=== PATIENT | female | born 1980 | race Caucasian/White ===

== ENCOUNTER 2016-11-03 22:10 | Emergency (ER) | payer SELFPAY ==
[~2016-11-03 22:10] MED LIST: ALEVE220 MG PO; AMOXICILLIN 50500 MG PO; CEPHALEXIN500 M1 PO; IBUPROFEN200 M1 PO; NO HOME MEDICATIONS; NORCO 325 MG-51 TAB PO
[2016-11-04 11:08] VITALS: BP 115/74
== END 2016-11-04 11:06 | disposition home or self-care (01) ==
LOC: ED 22:10
DX: S00.83XA Contusion of other part of head, initial encounter (principal); F10.20 Alcohol dependence, uncomplicated; F17.229 Nicotine dependence, chewing tobacco, with unspecified nicotine-induced disorders; Y90.8 Blood alcohol level of 240 mg/100 ml or more
CPT/HCPCS: J1200; J2060; J3411; J7030

== ENCOUNTER 2016-11-25 17:03 | Observation (INO) | payer SELFPAY ==
--- NOTE | 2016-11-25 19:49 | NUR ---
PATIENT ADMITTED TO OBSERVATION STATUS. SHE WILL REMAIN IN ROOM 101. SHE CURRENTLY HAS SOFT RESTRAINTS IN PLACE TO BILAT WRIST AND ANKLE. DURING HER ED VISIT SHE WAS UNCOOPERATIVE AND VERBALLY ABUSIVE/THREATENING TO STAFFF/OFFICERS. SHE IS CALMING DOWN; BECOMING MORE WILLING TO ANSWER HEALTH RELATED QUESTIONS AND PARTICIPATE WITH CARE. PATIENT IS NO LONGER HAVING VERBAL OUTBURSTS OF RANDOM NOISES. SHE WILL STILL CURSE AT OFFICERS/STAFF INTERMITTENTLY, BUT WITH A MORE CALMER TONE. EXTREMITIES APPEAR RELAXED.
--- NOTE | 2016-11-25 20:00 | NUR ---
PATIENT HAS CALMED DOWN, IS TALKING WITH OFFICERS AT BEDSIDE, ONE OF THE OFFICERS ASKS IF THE RESTRAINTS COULD BE REMOVED FOR PATIENTS COMFORT HE WILL BE AT BEDSIDE TO MONITOR CLOSELY, RESTRAINTS REMOVED AT THIS TIME, PATIENT COOPERATIVE AT THIS TIME, WILL CONTINUE TO MONITOR
[2016-11-25 20:14] VITALS: BP 120/60
[2016-11-25 20:17] VITALS: BP 120/60
--- NOTE | 2016-11-25 21:25 | NUR ---
Pt is not keeping arm straight and IV continues to alarm due to occlusion of IV. Per Dr. Noguera, IV may be stopped temporarily until pt will keep arm straight for infusion. IV stopped at this time. Pt resting in bed with eyes closed and police chief deputy remains in room.
[2016-11-25 23:05] VITALS: BP 102/55
--- NOTE | 2016-11-26 01:00 | NUR ---
patient sleeping soundly, resp even/unlabored, iv fluids infusing per gravity into IV in patients left ac, police officer booking remains at bedside
--- NOTE | 2016-11-26 01:56 | NUR ---
patient awake, ambulates to the bathroom without difficulty, gait steady, is alert, oriented and cooperative, no longer slurring words, behavior is appropriate, is ready to talk with psych screener from [facility] notified of need for psych screen at this time
[2016-11-26 03:00] VITALS: BP 116/68
--- NOTE | 2016-11-26 03:27 | NUR ---
Reyna from [facility] calls, report given, zoom meeting intiated, Reyna talking with patient over the computer at this time
--- NOTE | 2016-11-26 03:53 | NUR ---
Zoom meeting completed, Reyna calls nurses station with report, patient is to be discharged to home, Reyna will be calling Sunday afternoon to check in on patient, patient has agreed to this plan
[2016-11-26 04:28] VITALS: BP 117/85
--- NOTE | 2016-11-26 04:28 | NUR ---
IVL REMOVED WITHOUT DIFFICULTY, NO ACTIVE BLEEDING NOTED FROM INSERTION SITE, D/C VITALS TAKEN, REVIEWED DISCHARGE INSTRUCTIONS WITH PATIENT, SHE VERBALIZES UNDERSTANDING OF ALL INSTRUCTIONS, POLICE AT BEDSIDE TO ESCORT PATIENT HOME, PATIENT AMBULATES OUT WITHOUT DIFFICULTY, GAIT STEADY, DISCHARGED FROM OBS STATUS AT THIS TIME WITHOUT INCIDENT
== END 2016-11-26 04:28 | disposition home or self-care (01) ==
LOC: ED 17:03 → MED/SURG 19:01 → ED 19:01 → MED/SURG 19:01
PROVIDERS: ADMIT Family Medicine
DX: F10.129 Alcohol abuse with intoxication, unspecified (principal); Y90.8 Blood alcohol level of 240 mg/100 ml or more; F32.9 Major depressive disorder, single episode, unspecified; R45.1 Restlessness and agitation; F17.210 Nicotine dependence, cigarettes, uncomplicated; R45.5 Hostility
CPT/HCPCS: G0378; J2060; J3411; J7030

== ENCOUNTER 2016-12-01 15:53 | Observation (INO) | payer SELFPAY ==
[2016-12-01 21:56] VITALS: BP 129/80
[2016-12-01 22:01] VITALS: BP 129/80
--- NOTE | 2016-12-01 22:25 | NUR ---
PT ADMITTED TO OBS FROM ER. ADMISSION HX AND ASSESSMENT COMPLETE. PT ORIENTED TO ROOM. PT IS A FALL RISK DUE TO ALCOHOL WITHDRAWAL. EDUCATED PT ABOUT BED ALARM AND THAT IT WILL BE SET WHEN SHE IS IN BED. PT VERBALIZED UNDERSTANDING. PT IS MORE STEADY ON HER FEET NOW THEN BEFORE SHE GOT ATIVAN IN THE ER. INSTRUCTED PT TO LET RN KNOW WHEN SHE STARTS TO GET DETOX SYMPTOMS AGAIN THEN I WOULD GIVE HER MORE. PT VERBALIZED UNDERSTANDING. PT HAS 20G IV IN LAC WITH BANANA BAG INFUSING AT 125ML/HR. PT NOTED TO HAVE LARGE BRUISE TO LEFT UPPER ARM. APPEARS DARK PURPLE IN COLOR. PT STATES SHE HAS SMALL VERIOUS BRUISES ALL OVER HER BODY. PT STATES SHE HAS A HEADACHE 3/10. WILL AS[address] DR FOR SOMETHING FOR IT. PT ALSO GIVEN A NICOTINE PATCH. PT DENIES ANY OTHER NEEDS OR CONCERNS AT THIS TIME. THIS TIME.
[2016-12-01 22:54] VITALS: BP 129/80
[2016-12-01 23:19] VITALS: BP 129/80
--- NOTE | 2016-12-02 00:06 | NUR ---
PT STATES SHE IS STARTING TO FEEL SHAKY AGAIN. ATIVAN 1MG IV GIVEN. REASSESSED HEADACHE AND PT STATES IT IS GONE. PT DENIES ANY OTHER NEEDS AT THIS TIME.
--- NOTE | 2016-12-02 02:10 | NUR ---
PT UP TO RESTROOM. PT STATED SHE WAS NAUSEATED, SWEATY, AND HAVING WEIRD DREAMS. STATES HER SHAKES ARE DOING GOOD AT THIS TIME. DID REQUEST SOMETHING FOR THE NAUSEA. ZOFRAN 4MG IV GIVEN. WILL CONT TO MONITOR CLOSELY.
[2016-12-02 03:00] VITALS: BP 127/88
[2016-12-02 06:25] VITALS: BP 116/73
--- NOTE | 2016-12-02 06:33 | NUR ---
END OF SHIFT NOTE: PT APPEARED TO HAVE SLEPT PRETTY WELL THROUGHOUT THE NIGHT. UP A COUPLE TIMES TO VOID. MEDICATED ONCE SINCE ADMISSION WITH ATIVAN AND ONCE WITH ZOFRAN. PT ASKED SEVERAL TIMES THROUGHOUT THE SHIFT HOW HER WITHDRAWL SYMPTOMS WERE DOING AFTER LAST ATIVAN GIVEN. PT STATED FINE AND THAT SHE DID NOT NEED ANYMORE MEDICATION AT THAT TIME TO HELP WITH SYMPTOMS. PT CURRENTLY RESTING QUIETLY WITH EYES CLOSED. NO DISTRESS SEEN. BED ALARM IN ON. IV BANANA BAG CONTINUES TO INFUSE AT 125ML/HR THROUGH LAC IV.
--- NOTE | 2016-12-02 07:15 | NUR ---
Report given to DAYANA Anderson.
--- NOTE | 2016-12-02 07:33 | NUR ---
Report received from Iraj Best RN and care assumed. Pt resting in bed, eyes closed, and no signs of distress or discomfort noted at this time. Call light in reach, bed alarm on.
--- NOTE | 2016-12-02 08:15 | NUR ---
Pt has friend in to visit.
--- NOTE | 2016-12-02 09:00 | NUR ---
Pt states that she has a headache and feels like she is having a hang over. Dr. Madden notified and order obtained. Pt states that she has a friend who will be watching her and making sure that [place] [facility] [place] Talked with pt about the importance of going as expected and pt states that she will follow through with the plan. Pt up in bathroom getting ready for discharge, denies dizziness, gait steady.
[2016-12-02 09:43] VITALS: BP 136/93
--- NOTE | 2016-12-02 10:00 | NUR ---
Contacted [facility] regarding pt's arrival later today. Per staff there, pt still has a room available this afternoon and no other paperwork aside from discharge paperwork is needed. Pt given printed directions to the facility with discharge paperwork. Reviewed discharge instructions with pt and pt verbalizes understanding of importance of going to facility as discussed. Pt states that she has a friend in town, [place], who will be watching out for her and making sure she is doing what she is supposed to be doing. Pt has no other questions or concerns at this time. Pt ambulates out of facility to POV, gait steady.
== END 2016-12-02 10:00 | disposition home or self-care (01) ==
LOC: ED 15:53 → MED/SURG 21:40
PROVIDERS: ADMIT Family Medicine
DX: F10.20 Alcohol dependence, uncomplicated (principal); Y90.0 Blood alcohol level of less than 20 mg/100 ml; G25.2 Other specified forms of tremor; N39.0 Urinary tract infection, site not specified; F41.9 Anxiety disorder, unspecified; R11.0 Nausea; F17.210 Nicotine dependence, cigarettes, uncomplicated
CPT/HCPCS: G0378; J0696; J1885; J2060; J2405; J3411; J3475; J7030

== ENCOUNTER 2017-02-08 12:44 | Emergency (ER) | payer MEDICAID ==
[~2017-02-08] VITALS: Ht 162.6 cm; Wt 59.1 kg
[2017-02-08] MEDS ORDERED: ESCITALOPRAM10 MG PO (12:51)
[2017-02-08] MEDS ORDERED: XANAX0.5 M1 PO (16:39)
[2017-02-08 16:46] VITALS: BP 134/89
== END 2017-02-08 16:42 | disposition home or self-care (01) ==
LOC: ED 12:44
DX: R25.1 Tremor, unspecified (principal); F10.20 Alcohol dependence, uncomplicated; F32.9 Major depressive disorder, single episode, unspecified; F41.9 Anxiety disorder, unspecified

== ENCOUNTER 2019-05-05 21:35 | Emergency (ER) | payer MEDICAID ==
[~2019-05-05 21:35] MED LIST changes: +ESCITALOPRAM10 MG PO; +XANAX0.5 M1 PO
[2019-05-05 22:08] LABS: EOS # 0.1 (0.04-0.40); EOS % 0.5 % (1.0-5.0); HEMATOCRIT 43.1 % (37.0-47.0); HEMOGLOBIN 14.7 g/dL (12.5-16.0); LYMPH# 3.5 (1.50-4.00); MEAN CELL VOLUME 87 fl (78-100); MEAN CORPUSCULAR HEMOGLOBIN 30 pg (27-31); MEAN CORPUSCULAR HGB CONC 34 g/dL (33-37); MEAN PLATELET VOLUME 10.9 fl (7.4-10.4); MONO # 0.5 (0.20-0.80); PLATELET COUNT 265 K/mm3 (130-400); RED BLOOD COUNT 4.95 M/mm3 (4.10-5.30); RED CELL DISTRIBUTION WIDTH 13.3 % (11.5-14.5); WHITE BLOOD COUNT 10.1 K/mm3 (4.8-10.8)
[2019-05-05 22:19] LABS: POTASSIUM 4.1 mmol/L (3.5-5.1); SODIUM 145 mmol/L (136-145)
[2019-05-05 22:20] LABS: CALCIUM 10.5 mg/dL (8.3-10.5)
[2019-05-05 22:21] LABS: GLUCOSE 125 mg/dL (65-105); TOTAL PROTEIN 8.7 g/dL (6.4-8.3)
[2019-05-05 22:22] LABS: CARBON DIOXIDE 21 mmol/L (22-29)
[2019-05-05 22:23] LABS: TOTAL BILIRUBIN 0.3 mg/dL (0.2-1.2)
[2019-05-05 22:24] LABS: ALCOHOL IN-HOUSE 335 mg/dL (<10)
[2019-05-05 22:26] LABS: AST-SGOT 35 U/L (5-34)
[2019-05-05 22:28] LABS: ALT/SGPT 34 U/L (0-55)
[2019-05-05 22:31] LABS: ACETAMINOPHEN < 1 ug/mL
[2019-05-05 23:12] LABS: PH-URINE 7.5 (5.0 - 8.0); URINE APPEARANCE CLEAR; URINE BILIRUBIN NEGATIVE (NEGATIVE); URINE COLOR YELLOW; URINE GLUCOSE NEGATIVE (NEGATIVE); URINE KETONE NEGATIVE (NEGATIVE); URINE LEUKOCYTE ESTERASE NEGATIVE (NEGATIVE); URINE NITRATE NEGATIVE (NEGATIVE); URINE PROTEIN(semi-quant) TRACE mg/dL (NEGATIVE); URINE UROBILINOGEN NORMAL (NORMAL)
[2019-05-05 23:13] LABS: URINE BLOOD TRACE (NEGATIVE); URINE WBC 0-1 /hpf (0-3)
[2019-05-06] MEDS ORDERED: BUSPIRONE HCL7.5 MG PO (01:28)
[2019-05-06] MEDS ORDERED: CHANTIX 1MG1 MG PO (01:28)
[2019-05-06] MEDS ORDERED: ESCITALOPRAM20 MG PO (01:28)
[2019-05-06 08:52] VITALS: BP 146/88
== END 2019-05-06 08:53 | disposition home or self-care (01) ==
LOC: ED 21:35
PROVIDERS: Nurse Practitioner
DX: S61.512A Laceration without foreign body of left wrist, initial encounter (principal); Y04.0XXA Assault by unarmed brawl or fight, initial encounter
CPT/HCPCS: 90715; Q9967

== ENCOUNTER 2019-05-12 10:19 | Emergency (ER) | payer MEDICAID ==
[~2019-05-12 10:19] MED LIST changes: +BUSPIRONE HCL7.5 MG PO; +CHANTIX 1MG1 MG PO; +ESCITALOPRAM20 MG PO
[2019-05-12 10:35] VITALS: BP 136/88
== END 2019-05-12 10:40 | disposition home or self-care (01) ==
LOC: ED 10:19
DX: Z48.02 Encounter for removal of sutures (principal)

== ENCOUNTER → 2020-11-15 | Outpatient (CLI) | payer MEDICAID | LOC: LAB 08:40 | DX: R07.0 Pain in throat (principal); Z20.822 Contact with and (suspected) exposure to COVID-19 ==

== ENCOUNTER → 2020-11-17 | Outpatient (CLI) | payer MEDICAID | LOC: LAB 10:35 | DX: R07.0 Pain in throat (principal) ==